=== PATIENT | female | born 1960 | race Caucasian/White ===

== ENCOUNTER 2025-04-01 10:42 | Emergency (ER) | payer BC ==
--- NOTE | 2025-04-01 11:04 | ERPHSYRPT ---
- History of Present Illness Time Seen by Provider: 04/01/25 10:50 Source: patient, family Exam Limitations: no limitations Physician History: Patient came in with multiple symptoms. She reports per family initially she been slow to respond for several days. They state because of this they were concerned she was having a stroke. She was not having any stroke symptoms of weakness or numbness including no acute speech abnormality headache or other neurologic symptoms. Family just reported that she been slow and slightly not herself. He also reported that over the course of the last few days she has had intermittent sharp left-sided chest pain into her neck. Seems to be minimal. She describes a history of this and rheumatoid arthritis. She describes general fatigue over the last week. She had a colonoscopy she reports yesterday. She also reports for the last 1 to 2 weeks that she has had redness and swelling at the site of prior surgery in her left foot. Allergies/Adverse Reactions: No Known Drug Allergies Allergy (Unverified 04/01/25 11:07) - Review of Systems Constitutional: No Fever, No Chills Eyes: No Symptoms Ears, Nose, & Throat: No Symptoms Respiratory: No Cough, No Dyspnea Cardiac: Chest Pain, No Edema, No Syncope Abdominal/Gastrointestinal: No Abdominal Pain, No Nausea, No Vomiting, No Diarrhea Genitourinary Symptoms: No Dysuria Musculoskeletal: Other (Left great toe pain for 10 days), No Back Pain, No Neck Pain Skin: Other (Redness over the base of the great toeOn the leftSite of prior [id number] years ago), No Rash Neurological: No Dizziness, No Focal Weakness, No Sensory Changes Psychological: No Symptoms Endocrine: No Symptoms Immunological/Allergic: No Symptoms All Other Systems: Reviewed and Negative - Nursing Vital Signs Nursing Vital Signs: Initial Vital Signs Temperature 98 F 04/01/25 10:42 Pulse Rate 112 H 04/01/25 10:42 Respiratory Rate 16 04/01/25 10:42 Blood Pressure 91/58 04/01/25 10:42 O2 Sat by Pulse Oximetry 98 04/01/25 10:42 Pain Scale Pain Intensity 5 - Physical Exam General Appearance: no apparent distress, alert, other (Oriented x 3, pleasant, somewhat slow to respond to questioning but appropriate) Eye Exam: PERRL/EOMI, eyes nml inspection Ears, Nose, Throat Exam: normal ENT inspection, TMs normal, pharynx normal, moist mucous membranes Neck Exam: normal inspection, non-tender, supple, full range of motion Respiratory Exam: normal breath sounds, lungs clear, No respiratory distress Cardiovascular Exam: regular rate/rhythm, normal heart sounds, normal peripheral pulses Gastrointestinal/Abdomen Exam: soft, normal bowel sounds, No tenderness, No mass Back Exam: normal inspection, normal range of motion, No CVA tenderness, No vertebral tenderness Extremity Exam: normal inspection, normal range of motion, pelvis stable, other (There is no swelling. There is however left great toe prior surgical treatment. There is mild erythema over the site and slight generalized tenderness to palpation.) Neurologic Exam: alert, oriented x 3, cooperative, normal mood/affect, nml cerebellar function, nml station & gait, sensation nml, No motor deficits Skin Exam: normal color, warm, dry, other (Left great toe and base of the left great toe is red. It is unclear how long this has been present but a least a week per family), No rash Lymphatic Exam: No adenopathy O2 Delivery: Room Air Ordered Tests: Active Orders 24 hr Category Date Time Status Director Fundraising STAT Care 04/01/25 10:54 Active EKG-ER Only STAT Care 04/01/25 10:57 Active Telemetry q4h Care 04/01/25 12:00 Active CHEST 1 VIEW (PORTABLE) Stat Exams 04/01/25 10:54 Completed FOOT (2 VIEWS) Stat Exams 04/01/25 11:00 Completed HEAD WITHOUT CONTRAST [CT] Stat Exams 04/01/25 10:43 Completed BLOOD CULTURE Stat Lab 04/01/25 11:50 Received CBC W DIFF Stat Lab 04/01/25 10:50 Completed CMP Stat Lab 04/01/25 10:50 Completed Erythrocyte Sedimentation Rate Stat Lab 04/01/25 10:50 Completed Lactic Acid Stat Lab 04/01/25 11:23 Completed Manual Differential NC Stat Lab 04/01/25 10:50 Completed PROCALCITONIN Stat Lab 04/01/25 11:48 Completed TROPONIN Q4H Lab 04/01/25 10:50 Completed TROPONIN Q4H Lab 04/01/25 15:00 Ordered TROPONIN Q4H Lab 04/01/25 19:00 Ordered UA W/RFX UR CULTURE Stat Lab 04/01/25 10:55 Ordered Medication Summary Generic Name Dose Route Start Last Admin Trade Name Freq PRN Reason Stop Dose Admin Sodium Chloride 1,000 mls @ 999 mls/hr 04/01/25 11:30 04/01/25 12:36 Sodium Chloride 0.9% 1000 Ml IV 04/01/25 14:30 999 mls/hr .Q1H1M SAROJ Administration Vancomycin HCl 1 gm in 200 mls @ 125 mls/hr 04/01/25 11:23 04/01/25 11:31 Vancomycin 1 Gram/200 Ml Bag IV 04/01/25 12:58 125 ml/hr STAT ONE 125 mls/hr Administration Potassium Chloride 20 meq in 100 mls @ 50 mls/hr 04/01/25 12:00 04/01/25 12:36 Potassium Chloride 20 Meq In Water 100ml IV 04/01/25 15:59 50 mls/hr Q2H SAROJ Administration Discontinued Medications Generic Name Dose Route Start Last Admin Trade Name Freq PRN Reason Stop Dose Admin Piperacillin Sod/Tazobactam 100 mls @ 200 mls/hr 04/01/25 11:23 04/01/25 12:28 Sod 4.5 gm/ Sodium Chloride IV 04/01/25 11:52 Infused STAT STA Infusion Vancomycin HCl Confirm 04/01/25 11:29 Vancomycin 1 Gram/200 Ml Bag Administered 04/01/25 11:30 Dose 1 gm in 200 mls @ ud IV .STK-MED ONE Sodium Chloride Confirm 04/01/25 11:34 Sodium Chloride 0.9% Administered 04/01/25 11:35 Dose 100 mls @ ud .ROUTE .STK-MED ONE Piperacillin Sod/Tazobactam Sod Confirm 04/01/25 11:33 Piperacillin/Tazobactam Sodium 4.5 Gm Vial Administered 04/01/25 11:34 Dose 4.5 gm IV .STK-MED ONE Lab/Rad Data: Laboratory Result Diagrams 04/01/25 10:50 04/01/25 10:50 Laboratory Results 04/01/25 04/01/25 04/01/25 Range/Units 11:48 11:23 10:50 WBC (3.98-10.04) x10^3/uL RBC (3.93-5.22) x10^6/uL Hgb (11.2-15.7) g/dL Hct (34.1-44.9) % MCV (79.4-94.8) fL MCH (25.6-32.2) pg MCHC (32.2-35.5) g/dL RDW (11.7-14.4) % Plt Count (182-369) x10^3/uL MPV (9.4-12.3) fL ESR (0-20) mm/hr Sodium (135-145) mmol/L Potassium (3.5-5.1) mmol/L Chloride (98-107) mmol/L Carbon Dioxide (22-30) mmol/L Anion Gap (5-15) MEQ/L BUN (7-17) mg/dL Creatinine (0.52-1.04) mg/dL Estimated GFR ML/MIN Glucose (74-106) mg/dL Lactic Acid 2.5 H (0.4-2.0) Calcium (8.4-10.2) mg/dL Total Bilirubin (0.2-1.3) mg/dL AST (14-36) U/L ALT (0-35) U/L Alkaline Phosphatase (38-126) U/L Troponin I 0.032 (0.000-0.033) ng/mL Serum Total Protein (6.3-8.2) g/dL Albumin (3.5-5.0) g/dL Procalcitonin 12.300 H* (0.030-0.080) ng/mL 04/01/25 04/01/25 04/01/25 Range/Units 10:50 10:50 10:50 WBC 37.4 H* (3.98-10.04) x10^3/uL RBC 4.03 (3.93-5.22) x10^6/uL Hgb 12.6 (11.2-15.7) g/dL Hct 34.6 (34.1-44.9) % MCV 85.9 (79.4-94.8) fL MCH 31.3 (25.6-32.2) pg MCHC 36.4 H (32.2-35.5) g/dL RDW 13.1 (11.7-14.4) % Plt Count 233 (182-369) x10^3/uL MPV 11.5 (9.4-12.3) fL ESR 36 H (0-20) mm/hr Sodium 119 L* (135-145) mmol/L Potassium 2.3 L* (3.5-5.1) mmol/L Chloride 79 L (98-107) mmol/L Carbon Dioxide 28 (22-30) mmol/L Anion Gap 13.2 (5-15) MEQ/L BUN 29 H (7-17) mg/dL Creatinine 1.84 H (0.52-1.04) mg/dL Estimated GFR 30.3 ML/MIN Glucose 119 H (74-106) mg/dL Lactic Acid (0.4-2.0) Calcium 9.0 (8.4-10.2) mg/dL Total Bilirubin 1.60 H (0.2-1.3) mg/dL AST 78 H (14-36) U/L ALT 52 H (0-35) U/L Alkaline Phosphatase 159 H (38-126) U/L Troponin I (0.000-0.033) ng/mL Serum Total Protein 7.2 (6.3-8.2) g/dL Albumin 3.7 (3.5-5.0) g/dL Procalcitonin (0.030-0.080) ng/mL - Progress Progress Note: 04/01/25 12:49 I reviewed the case with the hospitalist as above. They felt the patient needed higher level of care. We discussed treatment options and family was agreeable to me talking with [facility]. I discussed the care with [facility] transfer center Dr. Agrawal Who accepted patient in transport. Had patient is on immunosuppressive's. She has a high white count. She has slightly elevated lactic acid and prolactin. She is being fluid resuscitated because of her hypotension arrival. She also found to be hyponatremic and hypokalemic. She was given broad-spectrum antibiotics. CT head was negative. EKG was sinus tach. Patient was updated on treatment plan to be monitored for symptoms of early sepsis and electrolyte management. - Departure Departure Disposition: Transfer Clinical Impression: Sepsis, Hyponatremia, Hypokalemia, Cellulitis of left foot Condition: Stable Critical Care Time: No Referrals: RUTHIE LI MD [NON-STAFF PHY W/O PRIVILEGES, UNKNOWN] - Follow up/PCP as directed
[2025-04-01 11:11] VITALS: TEMP 98
[2025-04-01 11:12] LABS: Hematocrit 34.6 % (34.1-44.9); Hemoglobin 12.6 g/dL (11.2-15.7); Mean Corpuscular Hemoglobin 31.3 pg (25.6-32.2); Mean Corpuscular Hgb Concent. 36.4 g/dL (32.2-35.5); Platelet Count 233 x10^3/uL (182-369); Red Blood Count 4.03 x10^6/uL (3.93-5.22)
[2025-04-01 11:19] LABS: White Blood Count 37.4 x10^3/uL (3.98-10.04)
[2025-04-01 11:25] LABS: Calcium 9.0 mg/dL (8.4-10.2); Carbon Dioxide 28.0 mmol/L (22-30); Creatinine 1 1.84 mg/dL (0.52-1.04); EST GLOMERULAR FILTRATION RATE 30.3 ML/MIN; Glucose 119.0 mg/dL (74-106); SGOT/AST 78.0 U/L (14-36); SGPT/ALT 52.0 U/L (0-35); Total Protein 7.2 g/dL (6.3-8.2)
[2025-04-01 11:29] LABS: Potassium 2.3 mmol/L (3.5-5.1)
[2025-04-01] MEDS ORDERED: VANCOMYCIN 1 GRAM/200 ML BAG 1 GM/200 ML PIGGYBACK IV ONE (11:29)
[2025-04-01] MEDS: VANCOMYCIN 1 GRAM/200 ML BAG 1 GM/200 ML PIGGYBACK IV ONE (11:31)
[2025-04-01] MEDS ORDERED: PIPERACILLIN/TAZOBACTAM IV ONE (11:33)
--- NOTE | 2025-04-01 11:38 | XRAY ---
CLINICAL HISTORY: weakness COMPARISON: None available TECHNIQUE: Axial non-contrast CT scan of the brain was performed from the skull base to the high parietal region. One of the following dose reduction techniques was utilized for this examination: automated exposure control, adjustment of the mA and/or kV according to patient size, or use of iterative reconstruction. FINDINGS: Brain Parenchyma: Subtle periventricular hypodensities are noted. There is normal attenuation of the cerebral hemispheres, cerebellum, and brainstem. There is no evidence of acute infarct, hemorrhage, or mass effect. There are no abnormal areas of hypoattenuation or hyperattenuation. Ventricular System: The ventricles are normal in size and configuration. There is no evidence of hydrocephalus or ventricular enlargement. Subarachnoid Spaces: Prominent intra- and extra-axial CSF spaces are present. There is no evidence of subarachnoid hemorrhage or extra-axial fluid collections. Cerebellum and Brainstem: There are no masses, lesions, or areas of abnormal density. Orbits: There is normal appearance of the globes, optic nerves, and extraocular muscles. There is no evidence of orbital masses or abnormal density. Sinuses: The paranasal sinuses are clear. There is no evidence of sinusitis or mucosal thickening. Mastoid Air Cells: The mastoid air cells are clear. There is no evidence of mastoiditis. Skull: There is normal skull morphology. IMPRESSION: There is no evidence of acute territorial infarct, hemorrhage, or mass effect. Microvascular ischemic angiopathy. Age-appropriate brain involutional changes. [facility] ER was called at [phone] at 10:32 AM COLLECTIONS TECHNICIAN, 04/01/2025 and Nayely ( SANDRA ) was informed regarding the negative stroke results. Electronically Signed by: Benito Pires MD. (04/01/2025 11:36:13 EDT)
--- NOTE | 2025-04-01 12:00 | XRAY ---
CLINICAL HISTORY: pain, redness COMPARISON: No prior studies are available for comparison. TECHNIQUE: X-ray images of the left foot were obtained in anteroposterior (AP), lateral, and oblique projections. FINDINGS: Bone Structure: An orthopedic implant is present at the first metatarsophalangeal joint with intact hardware. There is no evidence of loosening or gapping. The bone structure is normal and aligned. There is no evidence of fracture or dislocation. No osseous lesions or abnormalities are identified. Joint Spaces: The joint spaces are normal. There is no evidence of joint effusion or subluxation. Soft Tissues: The soft tissues appear normal and unremarkable. No soft tissue swelling, calcifications, or foreign bodies are noted. Additional Findings: A small plantar calcaneal spur is present. IMPRESSION: 1. There is no evidence of acute fracture, dislocation, or significant soft tissue abnormalities. 2. An orthopedic implant is present at the first metatarsophalangeal joint with intact hardware. There is no evidence of loosening or gapping. 3. A small plantar calcaneal spur is present. Disclaimer: A subtle bone abnormality or fracture may not be readily apparent on X-rays, thus clinical correlation and further imaging including follow-up CT, MRI, or follow-up X-rays are advised as needed. Electronically Signed by: Benito Pires MD. (04/01/2025 11:57:47 EDT)
--- NOTE | 2025-04-01 12:32 | XRAY ---
CLINICAL HISTORY: chest pain COMPARISON: No prior studies are available for comparison. TECHNIQUE: An X-ray image of the chest was obtained in the AP projection. FINDINGS: Pulmonary Parenchyma: Mild COPD changes are seen in the lower lung zones. A round calcified nodule is seen in the right lower lung zone, measuring 7.6 mm. A probable right mid zone cavitary lesion overlapping the right inferior end of the scapula is noted, which may be artifactual. A faint opacity is present in the left lower zone. There is no evidence of pleural effusion or pleural thickening. Heart and Mediastinum: Heart size and shape are normal. There is no mediastinal widening or masses. There is no hilar or mediastinal lymphadenopathy. Bony Thorax: The bony thorax appears intact without fractures or deformities. Soft Tissues: The soft tissues overlying the chest wall are unremarkable. IMPRESSION: 1. Mild COPD changes are seen in the lower lung zones. 2. A round calcified nodule is seen in the right lower lung zone. 3. A probable right mid zone cavitary lesion overlapping the right inferior end of the scapula, which may be artifactual. Further imaging is needed. 4. A faint opacity is present in the left lower zone. Electronically Signed by: Benito Pires MD. (04/01/2025 12:30:59 EDT)
[2025-04-01] MEDS ORDERED: POTASSIUM CHLORIDE 20 mEq IN WATER 100ML 100 ML IV ONE ×2 (12:35→14:53)
[2025-04-01] MEDS: POTASSIUM CHLORIDE 20 mEq IN WATER 100ML 20 MEQ/100 ML BAG IV SCH (12:36)
[2025-04-01 13:27] LABS: BAND 3 % (0.0-2.0); Total Cells Counted 100
[2025-04-01 13:29] LABS: Hypersegmented Polys 2+
[2025-04-01 13:30] LABS: Toxic Granulation 2+
[2025-04-01 16:12] VITALS: BP 130/69; PULSE 99; RESP 22; O2SAT 97
[2025-04-01 16:37] LABS: Glucose, Urine Negative (Negative); Protein,Urine Dip 30 (Negative)
== END 2025-04-01 16:30 | disposition short-term general hospital (02) ==
LOC: ED 10:42
DX: A41.9 Sepsis, unspecified organism (principal); L03.116 Cellulitis of left lower limb; E87.1 Hypo-osmolality and hyponatremia; E87.6 Hypokalemia; R07.9 Chest pain, unspecified; R53.83 Other fatigue